=== PATIENT | female | born 1995 | race Hispanic/Latino ===

== ENCOUNTER 2024-05-18 04:59 | Emergency (ER) | payer OTHER ==
[2024-05-18] MEDS ORDERED: dexAMETHasone 10 MG/ML VIAL ONE (06:01)
[2024-05-18 06:08] LABS: SARS-CoV-2 Antigen CONTROL BLUE LINE VIS/BG OK; SARS-CoV-2 Antigen Rapid Res Negative (Negative)
--- NOTE | 2024-05-18 06:37 | RAD REPORT ---
PROCEDURE: R CHEST 1 VIEW HISTORY: COUGH COMPARISON: None FINDINGS: The heart appears unremarkable. The lungs are clear there is no alveolar consolidation, effusion or p neumothorax. There are no acute bony or soft tissue abnormalities. IMPRESSION: No acute cardiopulmonary process. Electronically signed by: Cuauhtemoc Rodríguez MD 05/18/2024 06:33 AM [facility] Due to temporary technical issues with the PACS/Nimia reporting system, reports are being margy d by the in-house radiologist without review as a courtesy to ensure prompt reporting the interpreting radiologist is fully responsible for the content of the report. Transcribed Date/Time: 05/18/2024 6:36 AM
--- NOTE | 2024-05-18 06:54 | ER ---
Nurse's Notes [facility] Name: Marleny Roper Age: 29 yrs Sex: Female : 1995 Arrival Date: 05/18/2024 Time: 04:59 Bed 14 Private MD: Diagnosis: Viral infection, unspecified Presentation: 05/18 05:16 Chief complaint: Patient states: I have been having cough congestion for 4 days and it bm8 seems to be getting a little worse with time. Coronavirus screen: Vaccine status: Patient reports being unvaccinated. Ebola Screen: Patient negative for fever greater than or equal to 101.5 degrees Fahrenheit, and additional compatible Ebola Virus Disease symptoms Patient denies exposure to infectious person. Patient denies travel to an Ebola-affected area in the 21 days before illness onset. No symptoms or risks identified at this time. Resp Distress? No respiratory distress is noted at this time. Initial Sepsis Screen: Does the patient meet any 2 criteria? HR > 90 bpm. No. Patient's initial sepsis screen is negative. Does the patient have a suspected source of infection? No. Patient's initial sepsis screen is negative. Risk Assessment: Do you want to hurt yourself or someone else? Patient reports no desire to harm self or others. Onset of symptoms was May 14, 2024. 05:16 Method Of Arrival: Ambulatory bm8 05:16 Acuity: BRENNEN 5 bm8 Triage Assessment: 05:18 General: Appears in no apparent distress. comfortable, Behavior is calm, cooperative, bm8 appropriate for age. Pain: Complains of pain in chest Pain currently is 7 out of 10 on a pain scale. Aggravated by coughing. EENT: No deficits noted. Throat is clear Reports nasal congestion. Neuro: No deficits noted. Level of Consciousness is awake, alert, obeys commands, Oriented to person, place, time, situation, Appropriate for age. Cardiovascular: No deficits noted. Heart tones S1 S2 present Capillary refill < 3 seconds in bilateral fingers Patient's skin is warm and dry. Respiratory: Reports cough that is productive, pain with cough Airway is patent Respiratory effort is even, unlabored, Respiratory pattern is regular, symmetrical, Breath sounds are clear bilaterally. GI: No signs and/or symptoms were reported involving the gastrointestinal system. : No signs and/or symptoms were reported regarding the genitourinary system. Derm: No deficits noted. No signs and/or symptoms reported regarding the dermatologic system. Musculoskeletal: No signs and/or symptoms reported regarding the musculoskeletal system. SHERIFF: 05:18 LMP N/A - control method, Not bm8 Historical: - Allergies: 05:18 No Known Allergies; bm8 - Home Meds: 05:18 Ambien 10 mg Oral tablet 1 tab every day at bedtime [Active]; bm8 - PMHx: 05:18 insomnia; bm8 - PSHx: 05:18 None; bm8 - Immunization history:: Adult Immunizations up to date. - Infectious Disease History:: Denies. - Social history:: Smoking status: Patient denies any tobacco usage or history of. Patient uses street drugs, marijuana. Screenin:22 [facility] ED Fall Risk Assessment (Adult) History of falling in the last 3 months, bm8 including since admission No falls in past 3 months (0 pts) Confusion or Disorientation No (0 pts) Intoxicated or Sedated No (0 pts) Impaired Gait No (0 pts) Mobility Assist Device Used No (0 pt) Altered Elimination No (0 pt) Score/Fall Risk Level 0 - 2 = Low Risk Oriented to surroundings, Maintained a safe environment, Educated pt \T\ family on fall prevention, incl call for assistance when getting out of bed, Assessed \T\ reinforced patient's understanding of fall precautions, Hourly rounding (assess needs \T\ fall precautionary measures) done, Used ambulatory aids as needed (educated on \T\ assisted with), Used gait belt as appropriate. Abuse screen: Denies threats or abuse. Nutritional screening: No deficits noted. Tuberculosis screening: No symptoms or risk factors identified. Assessment: :22 Reassessment: see triage assessment. bm8 06:31 Reassessment: Patient appears in no apparent distress at this time. Patient and/or bm8 family updated on plan of care and expected duration. Pain level reassessed. Patient is alert, oriented x 3, equal unlabored respirations, skin warm/dry/pink. Patient denies pain at this time. Patient states feeling better. Patient states symptoms have improved. Cardiovascular: No deficits noted. Respiratory: No deficits noted. Vital Signs: 05:16 BP 122 / 77; Pulse 103; Resp 18; Temp 98.3; Pulse Ox 99% ; Weight 76.2 kg; Height 5 ft. bm8 0 in. ; Pain 7/10; 06:31 BP 96 / 91; Pulse 96; Resp 17; Temp 98.3; Pulse Ox 97% ; Pain 0/10; bm8 06:52 BP 97 / 55; ec2 05:16 Body Mass Index 32.81 (76.20 kg, 152.4 cm) bm8 05:16 Pain Scale: Adult bm8 06:31 Pain Scale: Adult bm8 [place] Coma Score: 05:22 Eye Response: spontaneous(4). Motor Response: obeys commands(6). Verbal Response: bm8 oriented(5). Total: 15. 06:31 Eye Response: spontaneous(4). Motor Response: obeys commands(6). Verbal Response: bm8 oriented(5). Total: 15. ED Course: 05:03 Patient arrived in ED. gm2 05:16 Rocael Hernandez, RN is Primary Nurse. bm8 05:18 Hermes Glover MD is Attending Physician. ec2 05:18 Triage completed. bm8 05:18 Arm band placed on right wrist. bm8 05:22 Patient has correct armband on for positive identification. Bed in low position. Call bm8 light in reach. Side rails up X 1. Client placed on continuous cardiac and pulse oximetry monitoring. NIBP monitoring applied. Pulse ox on. NIBP on. Door closed. Noise minimized. Warm blanket given. Pillow given. Verbal reassurance given. Head of bed elevated. 05:22 No provider procedures requiring assistance completed. Patient did not have IV access bm8 during this emergency room visit. Patient maintains SpO2 saturation greater than 95% on room air. 06:01 CXR XRAY In Process Unspecified. EDMS Administered Medications: 06:05 Drug: Dexamethasone IM 10 mg IM once Route: IM; Site: left ventrogluteal; bm8 06:31 Follow up: Response: No adverse reaction bm8 Medication: 05:22 VIS not applicable for this client. bm8 Outcome: 06:52 Discharge ordered by . ec2 07:38 Patient left the ED. Signatures: Dispatcher [employer] EDMS Gemini Rogers RN RN Hermes Glover MD MD ec [facility] Rocael Hernandez, COOKIE RN 8
--- NOTE | 2024-05-18 06:54 | EDPHYS ---
Physician Documentation [facility] Name: Marleny Roper Age: 29 yrs Sex: Female : 1995 Arrival Date: 05/18/2024 Time: 04:59 Bed 14 Private MD: ED Physician Hermes Glover HPI: 05/18 05:49 This 29 yrs old Female presents to ER via Ambulatory with complaints of Cough, ec2 Congestion. 05:49 Patient arrives today with several days of cough and cold symptoms. Patient have some ec2 congestion, some sore throat. No issues with p.o. intake, no vomiting or diarrhea.. [employer]: 05:18 LMP N/A - control method, Not bm8 Historical: - Allergies: 05:18 No Known Allergies; bm8 - Home Meds: 05:18 Ambien 10 mg Oral tablet 1 tab every day at bedtime [Active]; bm8 - PMHx: 05:18 insomnia; bm8 - PSHx: 05:18 None; bm8 - Immunization history:: Adult Immunizations up to date. - Infectious Disease History:: Denies. - Social history:: Smoking status: Patient denies any tobacco usage or history of. Patient uses street drugs, marijuana. ROS: 05:49 Constitutional: as per hpi ec2 Exam: 05:49 Constitutional: GEN: NAD Head: atraumatic Eyes: EOMI Ears: External ears are ec2 normal. CV: regular rate LUNGS: no respiratory distress, no wheezes or rales or rhonchi. ABD: non-distended SKIN: no evidence of rashes MSK: no evidence of trauma Vital Signs: 05:16 BP 122 / 77; Pulse 103; Resp 18; Temp 98.3; Pulse Ox 99% ; Weight 76.2 kg; Height 5 ft. bm8 0 in. ; Pain 7/10; 06:31 BP 96 / 91; Pulse 96; Resp 17; Temp 98.3; Pulse Ox 97% ; Pain 0/10; bm8 06:52 BP 97 / 55; ec2 05:16 Body Mass Index 32.81 (76.20 kg, 152.4 cm) bm8 05:16 Pain Scale: Adult bm8 06:31 Pain Scale: Adult bm8 [place] Coma Score: 05:22 Eye Response: spontaneous(4). Motor Response: obeys commands(6). Verbal Response: bm8 oriented(5). Total: 15. 06:31 Eye Response: spontaneous(4). Motor Response: obeys commands(6). Verbal Response: bm8 oriented(5). Total: 15. MDM: 05:18 Medical Screening Exam initiated ec2 05:49 Data reviewed: vital signs, nurses notes. ED course: Patient arrives today for ec2 evaluation of cough and cold symptoms. Examination is reassuring. Will obtain viral swabs and chest x-ray. Suspect viral infection, doubt pneumonia. Patient otherwise is generally well-appearing.. 06:52 ED course: Chest x-ray shows no acute intrathoracic process. Will discharge home, ec2 suspect viral infection. Return precautions given.. 05/18 05:18 Order name: Influenza Screen (a \T\ B); Complete Time: 06:52 ec2 05/18 05:18 Order name: SARS RAPID; Complete Time: 06:52 ec2 05/18 05:18 Order name: CXR XRAY ec2 Administered Medications: 06:05 Drug: Dexamethasone IM 10 mg IM once Route: IM; Site: left ventrogluteal; bm8 06:31 Follow up: Response: No adverse reaction bm8 Disposition Summary: 05/18/24 06:52 Discharge Ordered Notes: Location: Home ec2 Condition: Stable ec2 Diagnosis - Viral infection, unspecified ec2 Followup: ec2 - With: Private Physician - When: - Reason: Re-evaluation by your physician Discharge Instructions: - Discharge Summary Sheet ec2 - Viral Illness, Adult ec2 Forms: - Work release form ec2 - Medication Reconciliation Form ec2 - Antibiotic Education ec2 - Prescription Opioid Use ec2 - Patient Portal Instructions ec2 - Leadership Thank You Letter ec2 Prescriptions: - Zofran 4 mg Oral Tablet - take 1 tablet ORAL route every 12 hours As needed; 20 tablet; Refills: 0, ec2 Product Selection Permitted Signatures: Dispatcher [employer] EDHermes Salomon MD MD ec2 Rocael Hernandez RN RN bm8 Corrections: (The following items were deleted from the chart) 05:18 05:18 Influenza Screen (A \T\ B)+BA.LAB.BRZ ordered. EDIL EDIL 05:18 05:18 SARS-COV-2 Antigen Rapid+I.LAB.BRZ ordered. EDMS EDMS 05:19 05:19 Chest Single View+RAD.RAD.BRZ ordered. EDMS EDMS
[2024-05-18 10:29] VITALS: TEMP 98.3
[2024-05-18 10:30] VITALS: O2SAT 97
[2024-05-18 10:31] VITALS: BP 97/55
== END 2024-05-18 07:38 | disposition home or self-care (01) ==
LOC: ER 04:59
DX: B34.9 Viral infection, unspecified (principal); Z11.52 Encounter for screening for COVID-19
CPT/HCPCS: 36415; 87804 ×2; 71045; 96372; 99284; 87811; J1100